=== PATIENT | male | born 1980 | race African-American/Black ===

== ENCOUNTER 2018-12-11 14:01 | Emergency (ER) | payer BC ==
[~2018-12-11] VITALS: Ht 172.7 cm; Wt 72.6 kg
[2018-12-11 14:21] VITALS: BP 143/98; Ht 172.7 cm; Wt 72.6 kg
[2018-12-11] MEDS ORDERED: AUGMENTIN 875-11 TAB PO (16:02)
[2018-12-11] MEDS ORDERED: HYDROCODON-ACE1 EAC2 PO (16:02)
== END 2018-12-11 17:16 | disposition home or self-care (01) ==
LOC: D.ER 14:01
DX: S01.511A Laceration without foreign body of lip, initial encounter (principal); X58.XXXA Exposure to other specified factors, initial encounter